=== PATIENT | male | born 1955 | race African-American/Black ===

== ENCOUNTER 2017-06-09 09:04 | Outpatient (CLI) | payer SELFPAY | END 2017-06-09 09:05 | disposition home or self-care (01) | LOC: BICRAD 09:04 | PROVIDERS: ATTEND Radiology Diagnostic Radiology | DX: Z77.090 Contact with and (suspected) exposure to asbestos (principal) | CPT/HCPCS: 71020 ==

== ENCOUNTER 2018-03-20 20:30 | Outpatient (CLI) | payer MEDICARE | END 2018-03-20 20:31 | disposition home or self-care (01) | LOC: SLEEPLAB 20:30 | PROVIDERS: ATTEND Family Medicine | DX: G47.33 Obstructive sleep apnea (adult) (pediatric) (principal); R53.83 Other fatigue; R06.83 Snoring; I10 Essential (primary) hypertension; E11.9 Type 2 diabetes mellitus without complications; I63.9 Cerebral infarction, unspecified; G47.10 Hypersomnia, unspecified; G47.00 Insomnia, unspecified; Z68.29 Body mass index [BMI] 29.0-29.9, adult | CPT/HCPCS: 95810 ==

== ENCOUNTER 2018-05-01 08:38 | Day surgery (SDC) | payer MEDICARE ==
[2018-04-30 13:57] VITALS: BMI 25.9
--- NOTE | 2018-05-01 13:42 | OP ---
DATE OF PROCEDURE: 05/01/2018 SURGEON: Dr. Tan Wells PROCEDURE: Colonoscopy with snare polypectomy. PREOPERATIVE DIAGNOSIS: Colon cancer screening. PROCEDURE IN DETAIL: Informed consent was obtained from the patient. He was sedated with total intr avenous anesthesia. The rectal exam was performed and was normal. The preparation quality was good. The colonoscope was advanced to the cecum where the ileocecal valve and appendiceal orifice were cl early identified. The cecum had 2 small polyps measuring 2 mm, which were removed by cold biopsy for ceps. There was a 3 mm polyp in the transverse colon which was removed by cold biopsy forceps. A lo ng thin 7 mm polyp was removed from the sigmoid colon by snare cautery polypectomy. This was cauteri zed pretty extensively. Retroflexed views in the rectum were unremarkable. IMPRESSION: 1. Two small cecal polyps. 2. One small transverse colon polyp. 3. Thin 7 mm sigmoid polyp removed by snare cautery polypectomy. RECOMMENDATIONS: 1. Await histopathology. 2. Repeat colonoscopy depending on biopsy results.
[2018-05-01] MEDS ORDERED: Lidocaine 1% PF 5 ML VIAL ONE (17:53)
[2018-05-01] MEDS ORDERED: PROPOFOL 200 MG/20 ML VIAL ONE (17:53)
== END 2018-05-01 12:45 | disposition home or self-care (01) ==
LOC: SDC 08:38
PROVIDERS: ATTEND Internal Medicine Gastroenterology
PROC: 0DBH8ZX Excision of Cecum, Via Natural or Artificial Opening Endoscopic, Diagnostic (ICD-10-PCS; principal; 2018-05-01)
PROC: 0DBL8ZX Excision of Transverse Colon, Via Natural or Artificial Opening Endoscopic, Diagnostic (ICD-10-PCS; 2018-05-01)
PROC: 0DBN8ZX Excision of Sigmoid Colon, Via Natural or Artificial Opening Endoscopic, Diagnostic (ICD-10-PCS; 2018-05-01)
DX: Z12.11 Encounter for screening for malignant neoplasm of colon (principal); D12.3 Benign neoplasm of transverse colon; K63.5 Polyp of colon; I48.91 Unspecified atrial fibrillation; I11.0 Hypertensive heart disease with heart failure; I50.9 Heart failure, unspecified; I43 Cardiomyopathy in diseases classified elsewhere; E11.9 Type 2 diabetes mellitus without complications; E78.00 Pure hypercholesterolemia, unspecified; Z86.73 Personal history of transient ischemic attack (TIA), and cerebral infarction without residual deficits; Z79.82 Long term (current) use of aspirin; Z79.84 Long term (current) use of oral hypoglycemic drugs; Z79.899 Other long term (current) drug therapy
CPT/HCPCS: 88305; J2001; J2704

== ENCOUNTER 2018-05-29 22:16 | Observation (INO) | payer MEDICARE ==
[2018-05-29 22:41] LABS: #Eosinphils 0.1 thou/uL (0.0-0.7); #Lymphocytes 2.8 thou/uL (1.20-3.40); #Monocytes 0.5 thou/uL (0.11-0.59); #Neutrophils 2.2 thou/uL (1.40-6.50); %Basophils 0.7 % (0.0-1.0); %Eosinophils 2.5 % (0.0-10.0); %Lymphocytes 49.6 % (21.0-51.0); %Monocytes 8.5 % (0.0-10.0); %Neutrophils 38.8 % (42.0-75.0); Hemoglobin 13.3 g/dL (14.0-18.0); Mean Corpuscular HGB CONC 33.8 g/dL (32.0-36.0); Mean Corpuscular Hemoglobin 29.5 pg (27.0-31.0); Mean Corpuscular Volume 87.4 fL (78.0-98.0); Mean Platelet Volume 7.9 fL (7.4-10.4); Platelet Count 265 thou/uL (130-400); RBC Distribution Width 12.5 % (11.5-14.5); Red Blood Cell (RBC) Count 4.52 mill/uL (4.70-6.10); White Blood Cell (WBC) Count 5.7 thou/uL (4.8-10.8)
[2018-05-29 22:47] LABS: INR-International Normal Ratio 0.9; PTT 27.3 SEC (22.9-36.1); Prothrombin Time 12.6 SEC (12.0-14.7)
[2018-05-29] MEDS ORDERED: hydrALAZINE 20 MG/ML VIAL ONE (22:48)
[2018-05-29 23:00] LABS: ALT (SGPT) 19 U/L (8-55); AST (SGOT) 16 U/L (5-34); Alkaline Phosphatase 112 U/L (40-150); Anion Gap 15 mmol/L (10-20); BUN (Urea Nitrogen) 20 mg/dL (8.4-25.7); Bilirubin, Total 0.4 mg/dL (0.2-1.2); CK (CPK) 306 U/L (30-200); Calc. Creatinine Clearance 0 mL/min (70-130); Calcium 9.4 mg/dL (7.8-10.44); Carbon Dioxide 24 mmol/L (23-31); Chloride 105 mmol/L (98-107); Estimated GFR-MDRD 68; Globulin 3.4 g/dL (2.4-3.5); Glucose 110 mg/dL (80-115); Potassium 3.7 mmol/L (3.5-5.1); Protein, Total 7.4 g/dL (5.8-8.1); Sodium 140 mmol/L (136-145)
[2018-05-29 23:04] LABS: CKMB 3.1 ng/mL (0-6.6); Troponin I 0.024 ng/mL (< 0.028)
[2018-05-29] MEDS ORDERED: Nitroglycerin 2% Ointment 1 INCH/1 GM Packet ONE (23:08)
--- NOTE | 2018-05-29 23:12 | RAD ---
PORTABLE UPRIGHT FRONTAL CHEST RADIOGRAPH 05/29/18 HISTORY: Chest pain. FINDINGS: Loop recorder overlies the left lung base. No pneumothorax, pleural fluid, focal consolidation or osvaldo eolar edema. There is atherosclerotic calcifications in the aortic arch. There is mild elevation of the right hemidiaphragm. Cardiac silhouette is mildly prominent. IMPRESSION: No focal consolidation or alveolar edema. POS: [facility]
--- NOTE | 2018-05-29 23:22 | PDOC.FPRHP ---
- History of Present Illness Chief Complaint: chest pain History of Present Illness: Patient is a 62YO AAM w/ a PMH significant for a CAD s/p an SD 5 years ago, h/o ischemic CVA x3, HTN, HLD, DMII, a h/o atrial fibrillation who presented to the ED after having 2 episodes of chest pain while laying in bed for a sleep study this evening. The patient stated that around 22:00 this evening while laying in bed watching TV prior to beginning a sleep study he had sudden onset, sharp/ stabbing, non-radiating left-sided chest pain that last for about 1 minute before resolving spontaneously. However, about 1 minute later, he had a second episode which he rated as an 8/10 in severity which lasted 2-3 minute before it subsided on its own. He stated that the pain was similar to his previous SD and therefore alerted the sleep study personel. He was then given 324mg of ASA and SL nitro x2 and brought to the ED for further evaluation. The patient denies any associated SOB, N/V, diaphoresis, or lightheadedness. The patient says he follows closely with his core dropper, Dr. Durán in [place], and had a normal stress test about 6 months ago. He says he has never had a cardiac catheterization. ED Course: EMS: 324mg ASA & SL nitro x2 ED: 1 inch of nitropaste & 10mg IV hydralazine - Allergies/Adverse Reactions Allergies Allergy/AdvReac Type Severity Reaction Status Date / Time No Known Allergies Allergy Verified 04/30/18 13:38 - Home Medications Medication Instructions Recorded Confirmed Type Amlodipine [Norvasc] 5 mg PO DAILY #0 tab 02/03/14 04/30/18 Rx Atorvastatin Calcium [Lipitor] 80 mg PO QPM #0 tab 02/03/14 04/30/18 Rx Lisinopril [Zestril] 20 mg PO DAILY #0 tablet 02/03/14 04/30/18 Rx Tamsulosin HCl [Flomax] 0.4 mg PO DAILY 04/30/18 04/30/18 History hydrALAZINE HCl [Hydralazine HCl] 50 mg PO BID 04/30/18 04/30/18 History metFORMIN HCl [Metformin HCl] 1,000 mg PO BID 04/30/18 04/30/18 History Metoprolol Succinate [Toprol XL] 50 mg PO BID 05/01/18 05/01/18 History - History PMHx: CAD s/p SD in 2012, CVA x 3 w/o residual deficits, DMII, HTN, HLD, BPH, KATINA, h/o a fib PSHx: Loop recorder placement in 2013 FHx: maternal grandmother- DMII, HTN, from a CVA Father- SD in 50s & CVA Social: Lives at home with his in [place]. Denies any EtOH or drug use. Was a former smoker for 3 years in his teens. Smoked no more than 10 cigarettes/ day but quit ~40 years ago. - Review of Systems General: denies: fever/chills, weight/appetite/sleep changes Eyes: denies: eye pain, vision changes ENT: reports: other (no sore throat). denies: nasal congestion Respiratory: denies: cough, congestion, shortness of breath Cardiovascular: reports: chest pain. denies: palpitation, edema Gastrointestinal: denies: nausea, vomiting, diarrhea, constipation Genitourinary: denies: incontinence, dysuria Skin: denies: rashes, itching Musculoskeletal: denies: pain, swelling Neurological: denies: numbness, syncope, weakness Psychological: denies: anxiety, depression - Vital signs BP: 138/73 HR: 56 RR: 18 Tmax: 98.5F Pox: 97% on RA Wt: 86.64 kg - Physical Exam Constitutional: NAD, awake, alert and oriented, well developed HEENT: normocephalic and atraumatic, conjunctiva clear, grossly normal vision, grossly normal hearing Neck: supple, FROM, no JVD, no bruits Chest: no-tender to palpation Heart: normal S1/S2 (bradycardic with regular rhythm; 2/6 systolic murmur noted) , pulses present, no edema Lungs: CTAB, no respiratory distress, good air movement, no rales/rhonchi, no wheezing Abdomen: soft, non-tender, bowel sounds present Musculoskeletal: normal structure, ROM grossly normal Neurological: no focal deficit -Neurological: symmetric facial movements Skin: no rash/lesions, good turgor Heme/Lymphatic: no unusual bruising or bleeding Psychiatric: normal mood and affect, good judgment and insight, intact recent and remote memory FMR H&P: Results - Labs Result Diagrams: 05/29/18 22:32 05/30/18 02:26 Lab results: WBC 5.7 thou/uL (4.8-10.8) 05/29/18 22:32 Hgb 13.3 g/dL (14.0-18.0) L 05/29/18 22:32 Hct 39.5 % (42.0-52.0) L 05/29/18 22:32 MCV 87.4 fL (78.0-98.0) 05/29/18 22:32 Plt Count 265 thou/uL (130-400) 05/29/18 22:32 Neutrophils % 38.8 % (42.0-75.0) L 05/29/18 22:32 Sodium 140 mmol/L (136-145) 05/29/18 22:32 Potassium 3.7 mmol/L (3.5-5.1) 05/29/18 22:32 Chloride 105 mmol/L (98-107) 05/29/18 22:32 Carbon Dioxide 24 mmol/L (23-31) 05/29/18 22:32 BUN 20 mg/dL (8.4-25.7) 05/29/18 22:32 Creatinine 1.30 mg/dL (0.6-1.3) 05/29/18 22:32 Glucose 110 mg/dL (80-115) 05/29/18 22:32 Calcium 9.4 mg/dL (7.8-10.44) 05/29/18 22:32 Total Bilirubin 0.4 mg/dL (0.2-1.2) 05/29/18 22:32 AST 16 U/L (5-34) 05/29/18 22:32 ALT 19 U/L (8-55) 05/29/18 22:32 Alkaline Phosphatase 112 U/L (40-150) 05/29/18 22:32 Creatine Kinase 306 U/L (30-200) H 05/29/18 22:32 CK-MB (CK-2) 3.1 ng/mL (0-6.6) 05/29/18 22:32 Serum Total Protein 7.4 g/dL (5.8-8.1) 05/29/18 22:32 Albumin 4.0 g/dL (3.4-4.8) 05/29/18 22:32 - EKG Interpretation EKG: DENISHA in lead V2 - Radiology Interpretation Chest x-ray Status: report reviewed by me (no acute cardiopulmonary findings) FMR H&P: A/P - Problem List (1) History of CVA (cerebrovascular accident) without residual deficits Current Visit: Yes Status: Chronic (2) STEMI (ST elevation myocardial infarction) Current Visit: Yes Status: Suspected (3) Chest pain Current Visit: Yes Status: Acute Code(s): R07.9 - CHEST PAIN, UNSPECIFIED (4) HTN (hypertension) Current Visit: Yes Status: Chronic Code(s): I10 - ESSENTIAL (PRIMARY) HYPERTENSION Qualifiers: Hypertension type: essential hypertension Qualified Code(s): I10 - Essential (primary) hypertension (5) DM type 2 (diabetes mellitus, type 2) Current Visit: Yes Status: Chronic Qualifiers: Diabetes mellitus terminal carman insulin use: without half-way use (6) HLD (hyperlipidemia) Current Visit: Yes Status: Chronic Code(s): E78.5 - HYPERLIPIDEMIA, UNSPECIFIED (7) CAD (coronary artery disease) Current Visit: Yes Status: Chronic Code(s): I25.10 - ATHSCL HEART DISEASE OF [place] CORONARY ARTERY W/O ANG PCTRS (8) BPH (benign prostatic hyperplasia) Current Visit: Yes Status: Chronic Code(s): N40.0 - BENIGN PROSTATIC HYPERPLASIA WITHOUT LOWER URINRY TRACT SYMP (9) KATINA (obstructive sleep apnea) Current Visit: Yes Status: Chronic Code(s): G47.33 - OBSTRUCTIVE SLEEP APNEA (ADULT) (PEDIATRIC) (10) History of atrial fibrillation Current Visit: No Status: Chronic Code(s): Z86.79 - PERSONAL HISTORY OF OTHER DISEASES OF THE CIRCULATORY SYSTEM - Plan Patient is a 62YO AAM w/ a PMH significant for a CAD s/p an SD 5 years ago, h/o ischemic CVA x3, HTN, HLD, DMII, a h/o atrial fibrillation who presented to the ED after having 2 episodes of chest pain while laying in bed for a sleep study this evening & was found to have an STEMI on ECG. Typical chest pain likely 2/2 possible STEMI: - Patient experienced L-sided chest pain that was relievd spontaneously but has not returned since receiving nitro. - ECG significant for DENISHA in lead V2. Initial cardiac enzymes negative. - Heart score of 7 based on presentation. - Dr. Zamorano consulted in the ED and recommended continuing conservative management overnight as patient was now pain free for likely cath in the AM. - Will keep NPO overnight and continue full dose ASA QD & resume home meds w/ exception of BB and glipizide in anticipation of likely cath tomorrow. - Will order a FLP and repeat BMP in the AM for risk stratification. Will also get a TSH, Mg, and phosphorus given h/o a fib. CAD s/p SD: - Aware, will resume home meds. HTN: - Aware, BP significantly elevated at 180 systolic on presentation. - Down to 130s s/p 10 of hydralazine and nitro. - Will continue to monitor closely overnight and resume home meds in the AM w/ exception of BB. HLD: - Aware, will resume home atorvastatin 80mg dose. DMII: - Aware, will resume home metformin dose and hold glipizide while NPO to avoid hypoglycemia. - Will start on mild SSI PRN and get ACHS BG checks. BPH: -Aware, will resume home meds. Suspected KATINA: - Aware, patient was being evaluated via sleep study today. h/o atrial fibrillation: - Aware, patient not currently taking any anticoagulant and has been in sinus since presentation. - Will monitor closely on telemetry overnight. FMR H&P: Upper Level - Pertinent history 62 yo M with PMHx CAD, CVA, HTN, HLD, a fib and T2DM presents after chest pain that occurred during a sleep study. First event was at approximately 2200 where he experienced sudden sharp L-sided chest jorge that lasted approximately 1 minute. The second episode lasted 2-3 minutes and at that time he notified the staff at the sleep study and EMS was called. He was given ASA and nitro en route and at this time his pain has completely resolved. It felt similar to his last SD. He denies n/v/diaphoresis. - Pertinent findings VSS CXR negative EKG shows ST elevation in lead 2 Exam: Gen: awake, alert, oriented HEENT: atraumatic, normocephalic CV: RRR, 2/6 systolic crescendo-decrescendo murmur noted RESP: CTAB ABD: soft, nontender, nondistended, BS present and normoactive EXT: no swelling, peripheral pulses 2+ - Plan Date/Time: 05/29/18 2322 62 yo M with typical chest pain and EKG finding concerning for STEMI 1. STEMI - Dr. Zamorano notified in ED, no pain at this time - Continue to trend troponins - Instructed patient to notify us immediately if pain returns - HEART score 7 - Will not order stress for a.m. and await cardiology recommendations - h/o CAD with recent normal stress 6 mos ago per patient 2. H/o a fib - NSR at this time - Not on chronic anticoagulation - Monitor on tele and will consider further recs pending this hospitalization 3. HTN - Monitor and resume home meds Please see Dr. Last's note regarding remainder of chronic medical conditions. I, Daniela Cleveland Md, PGY-3, have evaluated this patient and agree with findings/ plan as outlined by internet salesperson resident. Pertinent changes/additions are listed here.
[2018-05-30] MEDS ORDERED: HumaLOG 300 UNITS/3 ML VIAL SC PRN (01:12)
[2018-05-30] MEDS ORDERED: Dextrose 50% Abboject 50 ML SYRINGE SLOW IVP PRN (01:12)
[2018-05-30] MEDS ORDERED: Ondansetron ODT 4 MG TAB PO PRN (01:12)
[2018-05-30] MEDS ORDERED: Nitroglycerin 0.4 MG TAB (25 Tab Bottle) PO PRN (01:12)
[2018-05-30] MEDS ORDERED: Dextrose 5% in Water 1,000 ML IV PRN (01:12)
[2018-05-30 03:00] LABS: Troponin I 0.014 ng/mL (< 0.028)
[2018-05-30 03:01] LABS: Anion Gap 12 mmol/L (10-20); BUN (Urea Nitrogen) 20 mg/dL (8.4-25.7); Calc. Creatinine Clearance 0 mL/min (70-130); Calcium 9.3 mg/dL (7.8-10.44); Carbon Dioxide 26 mmol/L (23-31); Chloride 107 mmol/L (98-107); Estimated GFR-MDRD 74; Glucose 98 mg/dL (80-115); Potassium 3.4 mmol/L (3.5-5.1); Sodium 142 mmol/L (136-145)
[2018-05-30 03:43] LABS: Phosphorus 3.8 mg/dL (2.3-4.7)
[2018-05-30 03:45] LABS: Cardiac Risk 3.8 (Less than 4.5)
[2018-05-30 05:53] LABS: Troponin I 0.016 ng/mL (< 0.028)
--- NOTE | 2018-05-30 07:55 | PDOC.FM ---
- Objective MAR Reviewed: Yes Result Diagrams: 05/29/18 22:32 05/30/18 02:26 EKG Reviewed by me: Yes Radiology Reviewed by me: Yes Dx/Plan (1) Chest pain Code(s): R07.9 - CHEST PAIN, UNSPECIFIED Status: Acute (2) CAD (coronary artery disease) Code(s): I25.10 - ATHSCL HEART DISEASE OF [place] CORONARY ARTERY W/O ANG PCTRS Status: Chronic (3) DM type 2 (diabetes mellitus, type 2) Status: Chronic Qualifiers: Diabetes mellitus long chain beamer insulin use: without prison use (4) HLD (hyperlipidemia) Code(s): E78.5 - HYPERLIPIDEMIA, UNSPECIFIED Status: Chronic (5) HTN (hypertension) Code(s): I10 - ESSENTIAL (PRIMARY) HYPERTENSION Status: Chronic Qualifiers: Hypertension type: essential hypertension Qualified Code(s): I10 - Essential (primary) hypertension (6) History of CVA (cerebrovascular accident) without residual deficits Status: Chronic (7) KATINA (obstructive sleep apnea) Code(s): G47.33 - OBSTRUCTIVE SLEEP APNEA (ADULT) (PEDIATRIC) Status: Chronic (8) CVA (cerebral infarction) Code(s): I63.9 - CEREBRAL INFARCTION, UNSPECIFIED Status: Acute (9) History of atrial fibrillation Code(s): Z86.79 - PERSONAL HISTORY OF OTHER DISEASES OF THE CIRCULATORY SYSTEM Status: Chronic - Plan Plan: Patient is a 62YO AAM w/ a PMH significant for a CAD s/p an [place] 5 years ago, h/o ischemic CVA x3, HTN, HLD, DMII, a h/o atrial fibrillation who presented to the ED after having 2 episodes of chest pain while laying in bed for a sleep study this evening & was found to have an STEMI on ECG. Typical chest pain likely 2/2 possible STEMI: - Patient experienced L-sided chest pain that was relievd spontaneously but has not returned since receiving nitro. - ECG significant for DENISHA in lead V2. Initial cardiac enzymes negative. - Heart score of 7 based on presentation. - Dr. Zamorano consulted in the ED and recommended continuing conservative management overnight as patient was now pain free for likely cath in the AM. - Will keep NPO overnight and continue full dose ASA QD & resume home meds w/ exception of BB and glipizide in anticipation of likely cath tomorrow. - Will order a FLP and repeat BMP in the AM for risk stratification. Will also get a TSH, Mg, and phosphorus given h/o a fib. CAD s/p [place]: - Aware, will resume home meds. HTN: - Aware, BP significantly elevated at 180 systolic on presentation. - Down to 130s s/p 10 of hydralazine and nitro. - Will continue to monitor closely overnight and resume home meds in the AM w/ exception of BB. HLD: - Aware, will resume home atorvastatin 80mg dose. DMII: - Aware, will resume home metformin dose and hold glipizide while NPO to avoid hypoglycemia. - Will start on mild SSI PRN and get ACHS BG checks. BPH: -Aware, will resume home meds. Suspected KATINA: - Aware, patient was being evaluated via sleep study today. h/o atrial fibrillation: - Aware, patient not currently taking any anticoagulant and has been in sinus since presentation. - Will monitor closely on telemetry overnight.
[2018-05-30] MEDS: hydrALAZINE 25 MG TAB PO SCH ×2 (13:16→20:58)
[2018-05-30] MEDS: Tamsulosin HCl 0.4 MG CAP PO SCH (13:17)
[2018-05-30] MEDS: Aspirin 325 MG TAB PO SCH (13:17)
[2018-05-30] MEDS: metFORMIN 500 MG TAB PO SCH ×2 (13:17→22:26)
[2018-05-30] MEDS: Amlodipine 5 MG TAB PO SCH (13:17)
[2018-05-30 15:00] VITALS: BMI 28.5
[2018-05-30] MEDS ORDERED: Enoxaparin Sodium 40 MG/0.4 ML SYRINGE SC SCH (21:00)
[2018-05-30] MEDS ORDERED: Atorvastatin Calcium 40 MG TAB PO SCH (21:00)
--- NOTE | 2018-05-31 10:37 | PDOC.FM ---
- Subjective Subjective: Patient doing well this AM. No significant overnight events. Patient had two episodes of sharp, left sided chest pain yesterday, similar to past episodes. They resolved within seconds without any interventions. Patient currently asymptomatic. Patient informed me that he had a stress test done two months ago in [place]. I informed patient that he would remain on stress test schedule unless we could confirm those results before that time. Patient understood. - Objective MAR Reviewed: Yes Vital Signs & Weight: Vital Signs (12 hours) Temp Pulse Resp BP Pulse Ox 05/31/18 07:27 97.7 F 70 20 168/93 H 93 L 05/31/18 04:20 97.8 F 57 L 14 165/82 H 97 05/31/18 00:00 98.5 F 88 18 160/82 H 96 Weight Weight 90.038 kg I&O: 05/30/18 05/31/18 06/01/18 06:59 06:59 06:59 Intake Total 540 Balance 540 Result Diagrams: 05/29/18 22:32 05/30/18 02:26 EKG Reviewed by me: Yes Radiology Reviewed by me: Yes <Christine Yang - Last Filed: 05/31/18 10:56> - Objective Vital Signs & Weight: Vital Signs (12 hours) Temp Pulse Resp BP Pulse Ox 05/31/18 07:27 97.7 F 70 20 168/93 H 93 L 05/31/18 04:20 97.8 F 57 L 14 165/82 H 97 05/31/18 00:00 98.5 F 88 18 160/82 H 96 Weight Weight 90.038 kg I&O: 05/30/18 05/31/18 06/01/18 06:59 06:59 06:59 Intake Total 540 Balance 540 Result Diagrams: 05/29/18 22:32 05/30/18 02:26 <Vahid Lennon - Last Filed: 05/31/18 11:19> Phys Exam - Physical Examination Constitutional: NAD HEENT: moist MMs Respiratory: no wheezing, clear to auscultation bilateral Cardiovascular: RRR systolic murmur Gastrointestinal: soft, no distention Musculoskeletal: no edema, pulses present Neurological: non-focal, moves all 4 limbs Psychiatric: normal affect Skin: no rash, cap refill <2 seconds <Christine Yang - Last Filed: 05/31/18 10:56> Dx/Plan (1) Chest pain Code(s): R07.9 - CHEST PAIN, UNSPECIFIED Status: Acute (2) CAD (coronary artery disease) Code(s): I25.10 - ATHSCL HEART DISEASE OF [place] CORONARY ARTERY W/O ANG PCTRS Status: Chronic (3) DM type 2 (diabetes mellitus, type 2) Status: Chronic Qualifiers: Diabetes mellitus care home insulin use: without care home use (4) HLD (hyperlipidemia) Code(s): E78.5 - HYPERLIPIDEMIA, UNSPECIFIED Status: Chronic (5) HTN (hypertension) Code(s): I10 - ESSENTIAL (PRIMARY) HYPERTENSION Status: Chronic Qualifiers: Hypertension type: essential hypertension Qualified Code(s): I10 - Essential (primary) hypertension (6) History of CVA (cerebrovascular accident) without residual deficits Status: Chronic (7) KATINA (obstructive sleep apnea) Code(s): G47.33 - OBSTRUCTIVE SLEEP APNEA (ADULT) (PEDIATRIC) Status: Chronic (8) CVA (cerebral infarction) Code(s): I63.9 - CEREBRAL INFARCTION, UNSPECIFIED Status: Acute (9) History of atrial fibrillation Code(s): Z86.79 - PERSONAL HISTORY OF OTHER DISEASES OF THE CIRCULATORY SYSTEM Status: Chronic - Plan Plan: Patient is a 62YO AAM w/ a PMH significant for a CAD s/p an [place] 5 years ago, h/o ischemic CVA x3, HTN, HLD, DMII, a h/o atrial fibrillation who presented to the ED after having 2 episodes of chest pain while laying in bed for a sleep study & was transferred to ED for evaluation. Atypical chest pain - Patient experienced sharp, L-sided chest pain that was relieved spontaneously. 2 episodes overnight that also went away spontaneously after several seconds - ECG significant for DENISHA in lead V2, similar to past EKG's. CE's negative. - Heart score of 7 based on presentation. - Dr. Zamorano consulted in the ED and recommended continuing conservative management. No plan for cardiac cath at this time as EKG changes are similar if not improved from past EKG's. Recommended stress test. - Continue ASA - If we receive records from [place] of stress test reportedly done 2 months ago prior to patient going down for stress test, and if the results are normal, we do not need to follow through with stress. However, plan is to repeat stress test unless those results come back prior to test. CAD: - Continue home meds HTN: - BP remains slightly elevated at 165/82 this AM. Will resume all home meds after stress test. - Continue to monitor. HLD: - Resume atorvastatin. DMII: - Mild SSI PRN and ACHS accuchecks. BPH: - Continue home meds. Suspected KATINA: - Aware, patient was being evaluated via sleep study prior to h/o atrial fibrillation: - Aware, patient not currently taking any anticoagulant and has been in sinus since presentation. - Has been in sinus rhythm since admission. Dispo: Stable. Plan for stress test this AM. If results are obtained from stress test reportedly done 2 months ago prior to AM stress test, then may consider d/c if those results were normal. Plan for d/c if stress test results are normal. If results abnormal, then will touch base with cardiology. Cardiology consulted by ED. <Christine Yang - Last Filed: 05/31/18 10:56> Attending Addendum - Attending Addendum Date/Time: 05/31/18 1119 I personally evaluated the patient and discussed the management with Dr. Yang. I agree with the History, Examination, Assessment and Plan documented above with any addition or exceptions noted below. <Vahid Lennon - Last Filed: 05/31/18 11:19>
[2018-05-31] MEDS: Tamsulosin HCl 0.4 MG CAP PO SCH (12:20)
[2018-05-31] MEDS: metFORMIN 500 MG TAB PO SCH (12:20)
[2018-05-31] MEDS: hydrALAZINE 25 MG TAB PO SCH (12:20)
[2018-05-31] MEDS: Amlodipine 5 MG TAB PO SCH (12:20)
[2018-05-31] MEDS: Aspirin 325 MG TAB PO SCH (12:21)
[2018-05-31 12:22] VITALS: BP 192/87; TEMP 98.1
--- NOTE | 2018-05-31 14:32 | NM ---
CARDIAC SPECT WITH EJECTION FRACTION AND WALL MOTION: Date: 05/31/18 HISTORY: 62-year-old male with history of status post CO, coronary artery disease, stroke, atrial fibrillation , and hypertension. TECHNIQUE: Adenosine sestamibi study. Patient was injected with 27.0 mCi technetium-99m sestamibi intravenously for stress images and 9.0 mCi technetium-99m sestamibi intravenously for resting images. FINDINGS: Multiple SPECT images in the short axis, vertical long axis, and horizontal long axis demonstrate no scan evidence for infarct or ischemia. TID: 1.15 LHR: 0.20 EDV: 122 mL EF: 69% MYOCARDIAL PERFUSION WALL MOTION: Wall motion is normal. IMPRESSION: No evidence for infarct or ischemia. EDV 122 mL. This is slightly improved from the prior study of at which time it was 132 mL. POS: [facility]
[2018-05-31] MEDS ORDERED: ADENOSINE 60 MG/20 ML VIAL ONE (17:07)
--- NOTE | 2018-06-02 18:24 | EKG ---
Test Reason : Blood Pressure : / mmHG Vent. Rate : 058 BPM Atrial Rate : 058 BPM P-R Int : 198 ms QRS Dur : 098 ms QT Int : 442 ms P-R-T Axes : 035 028 173 degrees QTc Int : 433 ms Sinus bradycardia Left ventricular hypertrophy with repolarization abnormality Cannot rule out Septal infarct , age undetermined Abnormal ECG Confirmed by SOLITARIO HULL ([id number]), development editor CHELY BARRY ([id number]) on 06/02/2018 6:23:30 PM Referred By: Confirmed By:SOLITARIO HULL
--- NOTE | 2018-06-02 18:24 | EKG ---
Test Reason : Blood Pressure : / mmHG Vent. Rate : 054 BPM Atrial Rate : 110 BPM P-R Int : 200 ms QRS Dur : 104 ms QT Int : 420 ms P-R-T Axes : 036 025 213 degrees QTc Int : 398 ms Sinus tachycardia with 2nd degree A-V block with 2:1 A-V conduction Possible Left atrial enlargement Anteroseptal infarct , possibly acute T wave abnormality, consider inferolateral ischemia * ACUTE LA * Abnormal ECG Confirmed by SOLITARIO HULL ([id number]), film editor supervisor CHELY BARRY ([id number]) on 06/02/2018 6:23:29 PM Referred By: Confirmed By:SOLITARIO HULL
== END 2018-05-31 17:08 | disposition home or self-care (01) ==
LOC: ERS 22:16 → ERHOLD 23:09 → 2SW 05-30 14:49
PROVIDERS: ADMIT Emergency Medicine; ATTEND Emergency Medicine
DX: R07.89 Other chest pain (principal); I25.10 Atherosclerotic heart disease of native coronary artery without angina pectoris; I10 Essential (primary) hypertension; E78.5 Hyperlipidemia, unspecified; N40.0 Benign prostatic hyperplasia without lower urinary tract symptoms; G47.33 Obstructive sleep apnea (adult) (pediatric); I48.91 Unspecified atrial fibrillation; Z86.73 Personal history of transient ischemic attack (TIA), and cerebral infarction without residual deficits; Z87.891 Personal history of nicotine dependence; Z79.84 Long term (current) use of oral hypoglycemic drugs; Z79.899 Other long term (current) drug therapy
CPT/HCPCS: 71045; 78452; 80048; 80053; 80061; 82550; 82553; 82962 ×2; 83735; 84100; 84443; 84484 ×3; 85025; 85610; 85730; 86850; 86900; 86901; 93005; 93017; 94760 ×2; 96372; 99285; A9500; G0378 ×2; 36415; 36416; J0153; J0360; J1644; J1650

== ENCOUNTER 2020-08-25 05:54 | Day surgery (SDC) | payer MEDICARE ==
[2020-08-24 09:29] VITALS: BMI 29.5
[2020-08-25] MEDS ORDERED: Levofloxacin 500 mg/D5W 100 ml Premix Bag ONE (06:08)
[2020-08-25] MEDS ORDERED: Fentanyl 100 MCG/2 ML VIAL ONE (07:02)
[2020-08-25] MEDS ORDERED: Midazolam HCl 2 mg/2 ml Vial ONE (07:02)
--- NOTE | 2020-08-25 08:30 | OP ---
DATE OF PROCEDURE: 08/25/2020 PREOPERATIVE DIAGNOSIS: Enlarged prostate with lower urinary tract symptoms. POSTOPERATIVE DIAGNOSIS: Enlarged prostate with lower urinary tract symptoms. PROCEDURE: UroLift. ANESTHESIA: TIVA. COMPLICATIONS: None. ESTIMATED BLOOD LOSS: Minimal. SPECIMEN: None. DESCRIPTION OF PROCEDURE: After informed consent, the patient was taken to the operating room, transferred to the table under his own power. Anesthesia was established. A time-out was performed showing the correct patient, site, and procedure. Preoperative antibiotics were administered. He was prepped and draped in the lithotomy position. I began by inserting the 20-Maori cystoscope through the urethra noting normal course and caliber of the urethra, into the prostate noting coapting lateral lobes with a moderately high bladder neck with no median lobe. The bladder was systematically examined noting mild trabeculation. Both ureters were normal in appearance. No mucosal abnormalities. I began by inserting 2 UroLift implants at the bladder neck anteriorly, first on the left than the right. We did sustain a pull-through on the right side requiring second placement. I then placed 2 implants right and left at the verumontanum. He has some persistent obstruction at the bladder neck and a second implant at the left side more anterior was required. Finally, he had persistent obstruction in the mid prostate and implants were placed, one left, one right at the mid prostate. He then had an excellent anterior channel with no active bleeding with water turned off. His bladder was drained and then refilled to about 200 mL. He was awoken from anesthesia, transferred back to his hospital bed and taken to PACU in stable condition, where he will undergo a void trial and discharged home upon recovery. Job ID: [id number]
[2020-08-25] MEDS ORDERED: Oxybutynin 5 MG TAB ONE (08:35)
[2020-08-25] MEDS ORDERED: Phenazopyridine HCl 100 MG TAB ONE (08:35)
[2020-08-25] MEDS ORDERED: Ketorolac Tromethamine 30 MG/ML VIAL ONE (08:35)
[2020-08-25] MEDS ORDERED: HYDROcodone/Acetaminophen 5/325 mg Tablet ONE (09:10)
[2020-08-25] MEDS ORDERED: PROPOFOL 200 MG/20 ML VIAL ONE (10:15)
== END 2020-08-25 10:20 | disposition home or self-care (01) ==
LOC: SDC 05:54
PROVIDERS: ATTEND Urology
PROC: 0T7D8DZ Dilation of Urethra with Intraluminal Device, Via Natural or Artificial Opening Endoscopic (ICD-10-PCS; principal; 2020-08-25)
DX: N40.1 Benign prostatic hyperplasia with lower urinary tract symptoms (principal); N13.8 Other obstructive and reflux uropathy; R35.1 Nocturia; N32.81 Overactive bladder; N32.89 Other specified disorders of bladder; I48.0 Paroxysmal atrial fibrillation; E78.5 Hyperlipidemia, unspecified; I10 Essential (primary) hypertension; E11.9 Type 2 diabetes mellitus without complications; Z87.891 Personal history of nicotine dependence; Z79.82 Long term (current) use of aspirin; Z79.84 Long term (current) use of oral hypoglycemic drugs; Z79.899 Other long term (current) drug therapy
CPT/HCPCS: J1885; J1956; J2250; J2704; J3010; L8699

== ENCOUNTER 2024-06-07 13:22 | Inpatient (IN) | payer OTHER ==
[2024-06-07] MEDS ORDERED: fentaNYL 50 mcg/mL 1 mL Vial ONE (14:01)
[2024-06-07 14:37] LABS: Troponin I 0.095 ng/mL (< 0.028)
[2024-06-07] MEDS ORDERED: Glucagon 1 MG/ML KIT IM PRN (16:06)
[2024-06-07] MEDS ORDERED: Insulin Regular, Human 100 UNIT/ML 10 ML VIAL SC PRN (16:06)
[2024-06-07] MEDS ORDERED: Dextrose 5% in Water 1,000 ML IV PRN (16:06)
[2024-06-07] MEDS ORDERED: Dextrose 50% Abboject 50 ML SYRINGE SLOW IVP PRN (16:06)
[2024-06-07] MEDS ORDERED: hydrALAZINE 25 MG TAB PO SCH (17:00)
[2024-06-07] MEDS: Potassium Chloride 20 MEQ TAB PO SCH (17:27)
[2024-06-07] MEDS: Magnesium Sulfate In Water 4 GM in Premix 1 BAG IVPB SCH (17:27)
[2024-06-07 17:28] LABS: Phosphorus 2.3 mg/dL (2.3-4.7)
[2024-06-07] MEDS: Amiodarone 200 MG TAB PO SCH (17:28)
[2024-06-07 17:37] LABS: Troponin I 0.114 ng/mL (< 0.028)
[2024-06-07] MEDS: Magnesium 2 GM/50 ML(in water) 4 GM in Premix 1 BAG IVPB SCH (17:56)
[2024-06-07 18:12] VITALS: BMI 25.8
[2024-06-07 20:13] LABS: Troponin I 0.113 ng/mL (< 0.028)
[2024-06-07] MEDS: metFORMIN 500 MG TAB PO SCH (20:21)
[2024-06-07] MEDS: Apixaban 5 MG TAB PO SCH (20:21)
[2024-06-07] MEDS: traZODone HCl 50 MG TAB PO SCH (20:21)
[2024-06-07] MEDS: Atorvastatin Calcium 40 MG TAB PO SCH (20:21)
[2024-06-07] MEDS: Tamsulosin HCl 0.4 MG CAP PO SCH (20:21)
[2024-06-07] MEDS: hydrALAZINE 25 MG TAB PO SCH (20:22)
[2024-06-07] MEDS ORDERED: Apixaban 5 MG TAB PO SCH (21:00)
[2024-06-07] MEDS ORDERED: Amiodarone 200 MG TAB PO SCH (21:00)
[2024-06-08 04:50] LABS: #Basophils 0.04 10x3/uL (0.0-0.2); %Basophils 0.6 % (0.0-1.0); %Eosinophils 1.5 % (0.0-10.0); %Lymphocytes 33.4 % (21.0-51.0); %Monocytes 9.7 % (0.0-10.0); %Neutrophils 54.5 % (42.0-75.0); Hematocrit 37.3 % (42.0-52.0); Hemoglobin 12.3 g/dL (14.0-18.0); Mean Corpuscular Hemoglobin 28.5 pg (27.0-31.0); Mean Corpuscular Volume 86.3 fL (78.0-98.0); Mean Platelet Volume 10.2 fL (7.4-10.4); Platelet Count 220 10x3/uL (130-400); RBC Distribution Width 13.3 % (11.5-14.5); Red Blood Cell (RBC) Count 4.32 mill/uL (4.70-6.10)
[2024-06-08 05:08] LABS: Anion Gap 12 mmol/L (10-20); BUN (Urea Nitrogen) 16 mg/dL (8.4-25.7); Calc. Creatinine Clearance 65 mL/min (70-130); Calcium 8.4 mg/dL (7.8-10.44); Carbon Dioxide 24 mmol/L (23-31); Chloride 109 mmol/L (98-107); Estimated GFR 62; Glucose 125 mg/dL (80-115); Magnesium 2.4 mg/dL (1.6-2.6); Phosphorus 2.4 mg/dL (2.3-4.7); Potassium 3.8 mmol/L (3.5-5.1); Sodium 141 mmol/L (136-145)
[2024-06-08] MEDS: Potassium Chloride 20 MEQ TAB PO SCH (08:50)
[2024-06-08] MEDS: Ferrous Sulfate 325 MG TAB PO SCH (08:51)
[2024-06-08] MEDS: glipiZIDE XL 10 mg ER.TAB PO SCH (08:51)
[2024-06-08] MEDS: Pioglitazone HCl 15 MG TAB PO SCH (08:57)
[2024-06-08] MEDS ORDERED: Enoxaparin 40 MG (0.4 mL) SYRINGE SC SCH (09:00)
[2024-06-08] MEDS ORDERED: Amiodarone 200 MG TAB PO SCH (09:00)
[2024-06-08] MEDS ORDERED: Regadenoson 0.4 MG/5 ML SYRINGE ONE (09:41)
[2024-06-08] MEDS: Amlodipine 10 MG TAB PO SCH (12:05)
[2024-06-08] MEDS: Amiodarone 200 MG TAB PO SCH (12:06)
[2024-06-08] MEDS: Valsartan 80 MG TAB PO SCH (12:07)
[2024-06-08] MEDS: hydrALAZINE 20 MG/ML VIAL SLOW IVP PRN (15:47)
[2024-06-09 04:50] LABS: #Basophils 0.05 10x3/uL (0.0-0.2); %Basophils 0.9 % (0.0-1.0); %Lymphocytes 27.5 % (21.0-51.0); %Monocytes 9.2 % (0.0-10.0); %Neutrophils 60.2 % (42.0-75.0); Hematocrit 36.6 % (42.0-52.0); Hemoglobin 12.2 g/dL (14.0-18.0); Mean Corpuscular HGB CONC 33.3 g/dL (32.0-36.0); Mean Corpuscular Hemoglobin 28.7 pg (27.0-31.0); Mean Corpuscular Volume 86.1 fL (78.0-98.0); Mean Platelet Volume 10.2 fL (7.4-10.4); Platelet Count 236 10x3/uL (130-400); RBC Distribution Width 13.2 % (11.5-14.5); Red Blood Cell (RBC) Count 4.25 mill/uL (4.70-6.10)
[2024-06-09 05:01] LABS: Anion Gap 13 mmol/L (10-20); BUN (Urea Nitrogen) 17 mg/dL (8.4-25.7); Calc. Creatinine Clearance 64 mL/min (70-130); Calcium 8.5 mg/dL (7.8-10.44); Carbon Dioxide 21 mmol/L (23-31); Chloride 108 mmol/L (98-107); Estimated GFR 62; Glucose 122 mg/dL (80-115); Potassium 3.7 mmol/L (3.5-5.1); Sodium 138 mmol/L (136-145)
[2024-06-09 05:02] LABS: Phosphorus 2.5 mg/dL (2.3-4.7)
[2024-06-09] MEDS: Insulin Regular, Human 100 UNIT/ML 10 ML VIAL SC PRN (12:08)
[2024-06-09] MEDS: Calcium Carbonate 500 MG ChewTAB PO PRN (18:23)
[2024-06-10 05:03] LABS: #Basophils 0.03 10x3/uL (0.0-0.2); %Basophils 0.5 % (0.0-1.0); %Eosinophils 0.5 % (0.0-10.0); %Lymphocytes 24.2 % (21.0-51.0); %Monocytes 8.2 % (0.0-10.0); %Neutrophils 66.3 % (42.0-75.0); Hemoglobin 12.5 g/dL (14.0-18.0); Mean Corpuscular HGB CONC 33.8 g/dL (32.0-36.0); Mean Corpuscular Hemoglobin 28.7 pg (27.0-31.0); Mean Corpuscular Volume 84.9 fL (78.0-98.0); Mean Platelet Volume 10.1 fL (7.4-10.4); Platelet Count 246 10x3/uL (130-400); RBC Distribution Width 13.2 % (11.5-14.5); Red Blood Cell (RBC) Count 4.36 mill/uL (4.70-6.10)
[2024-06-10 05:13] LABS: Phosphorus 2.9 mg/dL (2.3-4.7)
[2024-06-10 05:18] LABS: Anion Gap 14 mmol/L (10-20); BUN (Urea Nitrogen) 20 mg/dL (8.4-25.7); Calc. Creatinine Clearance 59 mL/min (70-130); Calcium 8.6 mg/dL (7.8-10.44); Carbon Dioxide 22 mmol/L (23-31); Chloride 104 mmol/L (98-107); Estimated GFR 56; Glucose 125 mg/dL (80-115); Magnesium 1.7 mg/dL (1.6-2.6); Potassium 3.8 mmol/L (3.5-5.1); Sodium 136 mmol/L (136-145)
[2024-06-10] MEDS: Hydrochlorothiazide 25 MG TAB PO SCH (12:11)
[2024-06-10] MEDS: metFORMIN 500 MG TAB PO SCH (18:03)
[2024-06-11 05:56] LABS: Anion Gap 15 mmol/L (10-20); BUN (Urea Nitrogen) 25 mg/dL (8.4-25.7); Calc. Creatinine Clearance 55 mL/min (70-130); Carbon Dioxide 24 mmol/L (23-31); Chloride 103 mmol/L (98-107); Estimated GFR 51; Glucose 99 mg/dL (80-115); Magnesium 1.8 mg/dL (1.6-2.6); Potassium 3.8 mmol/L (3.5-5.1); Sodium 138 mmol/L (136-145)
[2024-06-11 06:12] LABS: Phosphorus 3.9 mg/dL (2.3-4.7)
[2024-06-11] MEDS: glipiZIDE XL 10 mg ER.TAB PO SCH (09:24)
[2024-06-11] MEDS: Hydrochlorothiazide 25 MG TAB PO SCH ×2 (09:25→14:03)
[2024-06-12 05:39] LABS: Phosphorus 3.4 mg/dL (2.3-4.7)
[2024-06-12 05:47] LABS: Anion Gap 16 mmol/L (10-20); BUN (Urea Nitrogen) 25 mg/dL (8.4-25.7); Calc. Creatinine Clearance 55 mL/min (70-130); Calcium 8.9 mg/dL (7.8-10.44); Carbon Dioxide 24 mmol/L (23-31); Chloride 103 mmol/L (98-107); Estimated GFR 51; Glucose 118 mg/dL (80-115); Magnesium 1.8 mg/dL (1.6-2.6); Potassium 3.6 mmol/L (3.5-5.1); Sodium 139 mmol/L (136-145)
[2024-06-12] MEDS: Ferrous Sulfate 325 MG TAB PO SCH (08:22)
[2024-06-12] MEDS: NIFEdipine XL 30 MG ER.TAB PO SCH (08:24)
[2024-06-12] MEDS ORDERED: Lidocaine 1% PF 5 ML VIAL ONE (13:35)
[2024-06-12] MEDS ORDERED: PROPOFOL 20 ML ONE (13:35)
[2024-06-12] MEDS ORDERED: PHENYLEPHRINE-NS 100 MCG/ML 10 ML SYRINGE ONE (13:35)
[2024-06-12] MEDS ORDERED: Midazolam HCl 2 mg/2 ml Vial ONE (13:35)
[2024-06-12] MEDS ORDERED: Isoproterenol 0.2 MG/1 ML AMP ONE (13:46)
[2024-06-12] MEDS ORDERED: fentaNYL 50 mcg/mL 1 mL Vial ONE (13:50)
[2024-06-12] MEDS ORDERED: SUCCINYLCHOLINE/SOD CL,ISO/PF 200 MG/10 ML SYRINGE FS ONE (14:50)
[2024-06-12] MEDS ORDERED: Acetaminophen 325 MG TAB PO PRN (15:26)
[2024-06-12 15:50] VITALS: TEMP 98.3
[2024-06-12 16:54] VITALS: BP 146/76
== END 2024-06-12 20:35 | disposition home or self-care (01) | DRG 274 ==
LOC: ERS 13:22 → OBS 15:11 → OBSVTOIN 06-08 19:00
PROVIDERS: ADMIT Family Medicine; ATTEND Family Medicine
PROC: 4A023FZ Measurement of Cardiac Rhythm, Percutaneous Approach (ICD-10-PCS; principal; 2024-06-12)
PROC: 4A0234Z Measurement of Cardiac Electrical Activity, Percutaneous Approach (ICD-10-PCS; 2024-06-12)
DX: I25.10 Atherosclerotic heart disease of native coronary artery without angina pectoris (principal); I47.20 Ventricular tachycardia, unspecified; I10 Essential (primary) hypertension; E78.5 Hyperlipidemia, unspecified; E11.9 Type 2 diabetes mellitus without complications; G47.33 Obstructive sleep apnea (adult) (pediatric); N40.0 Benign prostatic hyperplasia without lower urinary tract symptoms; E87.6 Hypokalemia; R00.1 Bradycardia, unspecified; E83.42 Hypomagnesemia; I48.0 Paroxysmal atrial fibrillation; I25.2 Old myocardial infarction; Z86.73 Personal history of transient ischemic attack (TIA), and cerebral infarction without residual deficits; Z79.890 Hormone replacement therapy; Z79.84 Long term (current) use of oral hypoglycemic drugs; Z79.4 Long term (current) use of insulin; Z79.899 Other long term (current) drug therapy; Z87.891 Personal history of nicotine dependence
CPT/HCPCS: 36415; 36416; 78452; 80048; 82550; 83735; 84100; 84443; 85025; 93005; 93010; 93017; 93306; 93623; 93653; 96374; 96375; A9502; C1730; C1732; C1760; C1894; C2630; G0378; J0360; J1815; J2250; J2704; J2785; J3010; J3475